=== PATIENT | male | born 1970 | race Caucasian/White ===

== ENCOUNTER 2018-08-26 01:49 | Emergency (ER) | payer OTHER, BC ==
[2018-08-26] MEDS: GUAIFENESIN LA 600 MG TABSR PO (03:05)
[2018-08-26] MEDS: FLUTICASONE 0.05% 16 GM NAS SPRAY NASAL (03:05)
== END 2018-08-26 03:43 | disposition home or self-care (01) ==
LOC: FTE 01:49
DX: R09.81 Nasal congestion (principal); R03.0 Elevated blood-pressure reading, without diagnosis of hypertension; F17.210 Nicotine dependence, cigarettes, uncomplicated; Z79.82 Long term (current) use of aspirin
CPT/HCPCS: 99283